=== PATIENT | female | born 1960 | race Caucasian/White ===

== ENCOUNTER 2016-06-20 15:11 | Outpatient (CLI) ==
[2016-04-05 10:23] VITALS: BMI 25.4
--- NOTE | 2016-06-20 15:34 | DI ---
EXAM: Five views of the lumbar spine HISTORY: Lower back pain. COMPARISON: CT abdomen pelvis 04/05/2016 FINDINGS: The vertebral bodies demonstrate no acute compression fracture or subluxation. There is m inimal superior endplate deformity at T12. There is scattered facet arthropathy, most pronounced in the lower lumbar spine. The lumbosacral junction is intact. Mild facet arthropathy is present wit h no neural foraminal narrowing noted. Soft tissues demonstrate surgical clips in right upper quadr ant. IMPRESSION: 1. No acute compression fracture or subluxation of the lumbar spine. 2. Minimal degenerative disease and facet arthropathy in the lumbosacral spine.
== END 2016-06-20 15:12 | disposition home or self-care (01) ==
LOC: RAD 15:11
PROVIDERS: ATTEND Nurse Practitioner Family
DX: M54.5 Low back pain (principal)

== ENCOUNTER 2016-06-27 09:45 | Emergency (ER) ==
[2016-06-27 10:02] VITALS: BP 168/111; TEMP 98.9; BMI 25.2
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
[2016-06-27] MEDS ORDERED: NORFLEX IM STA (10:19)
[2016-06-27] MEDS ORDERED: STADOL IM STA (10:19)
== END 2016-06-27 11:18 | disposition home or self-care (01) ==
LOC: ED 09:45
DX: M54.5 Low back pain (principal); G89.29 Other chronic pain; F17.210 Nicotine dependence, cigarettes, uncomplicated; Z79.899 Other long term (current) drug therapy
CPT/HCPCS: 96372; 99282